=== PATIENT | female | born 1965 | race Two or more races ===

== ENCOUNTER 2024-11-17 21:26 | Inpatient (IN) | payer MEDICAID, OTHER ==
[~2024-11-17] VITALS: Ht 160 cm; Wt 75.0 kg
[2024-11-17 21:35] VITALS: BP 102/72; RESP 18; O2SAT 98
[2024-11-17 21:37] VITALS: PULSE 95
[2024-11-17] MEDS ORDERED: SODIUM CHLORIDE 0.9% 1,000 ML IV ONE (21:45)
[2024-11-17] MEDS ORDERED: ONDANSETRON HCL 4 MG/2 ML VIAL IV ONE (21:45)
--- NOTE | 2024-11-17 21:53 | ED.PDOC ---
History of Present Illness HPI Comments 59 year old female came to ER by EMS for weakness. Patient has history of diabetes. States she has been having episodes of diarrhea all day, she has been feeling very weak and dehydrated, in had a near-syncopal attack today. Blood sugar on scene was 133. 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 Family History Family History: Reviewed,noncontributory to illness Social History Smoker: Non-Smoker Alcohol: Denies ETOH Use Drugs: Denies Drug Use Lives In: Home Constitutional: reports: weakness; denies: chills, diaphoresis, fatigue, fever, malaise, sweats, others EENTM: denies: blurred vision, double vision, ear bleeding, ear discharge, ear drainage, ear pain, ear ringing, eye pain, eye redness, hearing loss, mouth pain, mouth swelling, nasal discharge, nose bleeding, nose congestion, nose pain, photophobia, tearing, throat pain, throat swelling, voice changes, others Respiratory: denies: cough, hemoptysis, orthopnea, SOB at rest, shortness of breath, SOB with excertion, stridor, wheezing, others Cardiovascular: denies: chest pain, dizzy spells, diaphoresis, Dyspnea on exertion, edema, irregular heart beat, left arm pain, lightheadedness, palpitations, PND, syncope, others Gastrointestinal: reports: abdominal pain, diarrhea; denies: abdomen distended, blood streaked bowels, constipated, dysphagia, difficulty swallowing, hematemesis, melena, nausea, poor appetite, poor fluid intake, rectal bleeding, rectal pain, vomiting, others Genitourinary: denies: abnormal vagina bleeding, burning, dyspareunia, dysuria, flank pain, frequency, hematuria, incontinence, pain, , vagina discharge, urgency, others Neurological: denies: dizziness, fainting, headache, left sided numbness, left sided weakness, numbness, paresthesia, pre-existing deficit, right sided numbness, right sided weakness, seizure, speech problems, tingling, tremors, weakness, others Musculoskeletal: denies: back pain, gout, joint pain, joint swelling, muscle pain, muscle stiffness, neck pain, others Integumetry: denies: bruises, change in color, change in hair/nails, dryness, laceration, lesions, lumps, rash, wounds, others Allergic/Immunocompromised: denies: Difficulty Healing, Frequent Infections, Hives, Itching, others Hematologic/Lymphatic: denies: anemia, blood clots, easy bleeding, easy bruising, swollen glands, others Endocrine: denies: excessive hunger, excessive sweating, excessive thirst, excessive urination, flushing, intolerance to cold, intolerance to heat, unexplained weight gain, unexplained weight loss, others Psychiatric: denies: anxiety, bipolar disorder, depression, hopeless, panic disorder, schizophrenia, sleepless, suicidal, others Physical Exam General Appearance: No Apparent Distress, Normal HEENT: Normal ENT Inspection, Pharynx Normal, TMs Normal Neck: Full Range of Motion, Non-Tender, Normal, Normal Inspection Respiratory: Chest Non-Tender, Lungs Clear, No Accessory Muscle Use, No Respiratory Distress, Normal Breath Sounds Cardiovascular: No Edema, No JVD, No Murmur, No Gallop, Normal Peripheral Pulses, Regular Rate/Rhythm Breast Exam: Deferred Gastrointestinal: No Organomegaly, Non Tender, No Pulsatile Mass, Normal Bowel Sounds, Soft Genitalia: Deferred Pelvic: Deferred Rectal: Deferred Extremities: No calf tenderness, Normal capillary refill, Normal inspection, Normal range of motion, Non-tender, No pedal edema Musculoskeletal : Apperance: Normal 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 Was a procedure done?: No Differential Dx Considerations may include: anemia, electrolyte imbalance, dehydration, syncope, gastroenteritis X-Ray, Labs, Meds, VS Vital Signs Date Time Temp Pulse Resp B/P (MAP) Pulse Ox O2 Delivery O2 Flow Rate FiO2 11/17/24 21:37 95 11/17/24 21:35 97.5 98 18 102/72 (82) 98 Lab Test 11/17/24 23:00 11/17/24 22:08 Range/Units Troponin I High Sensitivity 6 4 </=34 ng/L White Blood Count 10.0 4.4-10.8 10^3/uL Red Blood Count 5.23 H 4.0-5.20 10^6/uL Hemoglobin 17.0 H 12.2-16.2 g/dL Hematocrit 49.4 H 36.0-46.0 % Mean Corpuscular Volume 94.4 80.0-100.0 fL Mean Corpuscular Hemoglobin 32.5 H 28.0-32.0 pg Mean Corpuscular Hemoglobin Concent 34.5 32.0-36.0 g/dL Red Cell Distribution Width 13.7 11.8-14.3 % Platelet Count 296 140-450 10^3/uL Mean Platelet Volume 10.0 6.9-10.8 fL Neutrophils (%) (Auto) 67.5 37.0-80.0 % Lymphocytes (%) (Auto) 19.5 10.0-50.0 % Monocytes (%) (Auto) 7.5 0.0-12.0 % Eosinophils (%) (Auto) 5.0 0.0-7.0 % Basophils (%) (Auto) 0.5 0.0-2.0 % Neutrophils # (Auto) 6.8 1.6-8.6 10 ^3/uL Lymphocytes # (Auto) 2.0 0.4-5.4 10 ^3/uL Monocytes # (Auto) 0.8 0-1.3 10 ^3/uL Eosinophils # (Auto) 0.5 0-0.8 10 ^3/uL Basophils # (Auto) 0.1 0-0.2 10 ^3/uL Nucleated Red Blood Cells 0.0 % Sodium Level 139 136-145 mmol/L Potassium Level 4.0 3.5-5.1 mmol/L Chloride Level 102 98-107 mmol/L Carbon Dioxide Level 28 20-31 mmol/L Anion Gap 9 5-15 Blood Urea Nitrogen 22 9-23 mg/dL Creatinine 1.26 H 0.550-1.02 mg/dL Glomerular Filtration Rate Calc 49 >90 mL/min BUN/Creatinine Ratio 17.5 10.0-20.0 Serum Glucose 123 H 74-106 mg/dL Calcium Level 11.2 H 8.7-10.4 mg/dL B-Type Natriuretic Peptide 4.54 0-100 pg/mL Time of 1ST Reevaluation: 21:47 Reevaluation 1ST: Unchanged Patient Education/Counseling: Diagnosis, Treatment Family Education/Counseling: No Family Present Departure 1 Departure Time of Disposition: 23:39 (Patient presented with syncope today and should be admitted. Data: 1. I ordered and reviewed the result of at least 3 labs including a CBC, BMP, and troponin. 2. I independently interpreted the following tests: EKG which shows a sinus rhythm and and a chest x-ray which shows benign chest and a CT head which shows benign brain.Risk:This patient has a high risk of morbidity due to further diagnostic testing or treatment and may suffer from an acute cardiac, neurologic, or infectious disorder. Rationale: Patient should be admitted to the hospital for further management.) Impression: Primary Impression: Syncope and collapse Additional Impressions: Diarrhea Qualified Codes: R19.7 - Diarrhea, unspecified Generalized weakness Disposition: ADMITTED INPATIENT Admit to: Med Surg Condition: Serious Critical Care Note Critical Care Time?: No Stability Stability form required: No Heart Score Heart Score: Heart Score Response (Comments) Value History N/A 0 EKG N/A 0 Age N/A 0 Risk Factors N/A 0 Troponin N/A 0 Total 0 I personally scribed for AGUSTIN BARBER MD ([email or web address]) on 11/17/24 at 21:53. Electronically submitted by Sim Chen ([email or web address]). AGUSTIN BARBER MD Nov 17, 2024 21:53
--- NOTE | 2024-11-17 22:15 | DVH ---
EXAM: CT HEAD WITHOUT CONTRAST HISTORY: syncope COMPARISON: None TECHNIQUE: Axial images were obtained and reformatted in coronal and sagittal planes. All CT scans at this medical facility are performed using dose modulation techniques as appropriate t o a performed exam including the following: Automated exposure control was utilized; adjustment of th e MA and/or KV according to patient size; and use of iterative reconstruction technique. CT Dose: CTDI volume is 55 mGy. Dose-length product is 989 mGy*cm FINDINGS: Supratentorial Region: No evidence for large acute territorial ischemia. No intracranial hemorrhage is noted. Posterior Fossa: No acute abnormality. Brainstem: Unremarkable. Sellar/Suprasellar Region: Unremarkable. Ventricles, Cisterns, Sulci: Age-appropriate. Orbits: Unremarkable. Paranasal Sinuses: Unremarkable. Mastoid Air Cells: Unremarkable. Vasculature: Unremarkable. Bones/Soft Tissues: No acute abnormality. Other: None. IMPRESSION: 1. No acute intracranial process.
--- NOTE | 2024-11-17 22:26 | DVH ---
CHEST RADIOGRAPH Indication: syncope Technique: Single frontal view of the chest was obtained Comparison: None FINDINGS: Single frontal view of the chest demonstrates expanded lungs with normal peripheral marking s. Trachea is midline macrina sharp mainstem bronchi are well aerated. Aorta is unremarkable. Heart size is normal. IMPRESSION: 1. No acute findings
[2024-11-17 22:28] LABS: Basophils # (auto) 0.1 10 ^3/uL (0-0.2); Basophils % (auto) 0.5 % (0.0-2.0); Eosinophils # (auto) 0.5 10 ^3/uL (0-0.8); Hematocrit 49.4 % (36.0-46.0); Lymphocytes % (auto) 19.5 % (10.0-50.0); Mean Corpuscular Hemoglobin 32.5 pg (28.0-32.0); Mean Corpuscular Hgb Conc. 34.5 g/dL (32.0-36.0); Mean Corpuscular Volume 94.4 fL (80.0-100.0); Monocytes # (auto) 0.8 10 ^3/uL (0-1.3); Monocytes % (auto) 7.5 % (0.0-12.0); Neutrophils # (auto) 6.8 10 ^3/uL (1.6-8.6); Neutrophils % (auto) 67.5 % (37.0-80.0); Platelet Count (auto) 296 10^3/uL (140-450); Red Blood Cells 5.23 10^6/uL (4.0-5.20); Red Cell Distribution Width 13.7 % (11.8-14.3)
[2024-11-17 22:53] LABS: Chloride 102 mmol/L (98-107); Sodium 139 mmol/L (136-145)
[2024-11-17 22:54] LABS: Anion Gap 9 (5-15); Carbon Dioxide 28 mmol/L (20-31)
[2024-11-17 22:59] LABS: BUN/Creatinine Ratio 17.5 (10.0-20.0); Blood Urea Nitrogen 22 mg/dL (9-23)
[2024-11-17 23:03] LABS: Calcium 11.2 mg/dL (8.7-10.4); Glucose 123 mg/dL (74-106)
[2024-11-18] MEDS ORDERED: NITROGLYCERIN 0.4 MG SL TAB SL PRN (01:30)
[2024-11-18] MEDS ORDERED: SODIUM CHLORIDE 0.9% 1,000 ML IV SCH (01:30)
[2024-11-18] MEDS ORDERED: ACETAMINOPHEN 325 MG TAB PO PRN (01:30)
[2024-11-18] MEDS ORDERED: ONDANSETRON HCL 4 MG/2 ML VIAL IV PRN (01:30)
[2024-11-18] MEDS ORDERED: MORPHINE SULFATE INJ 2 MG/ml SYRG IV PRN (01:30)
--- NOTE | 2024-11-18 01:38 | DVHHPRES ---
History of Present Illness Resident Creating Document: MARIA ELENA SOTO RESIDENT History of Present Illness DULCE ZAPATA 59 years old female with a PMH of type 2 DM, asthma, arthritis, GERD, HTN presented to the ED with the chief complaints of weakness and diarrhea since morning. Patient reported yesterday she had about a 2 and today morning patient started having diarrhea which is nonbloody, 5 episodes, associated with mild nausea but no vomiting, abdominal pain, fever and today afternoon patient ate [place] food, since then she is having burping and smells like egg. Patient reported the she felt near faintedness due to dehydration. No other acute associated symptoms. PMH: Type 2 DM, asthma, arthritis, GERD, HTN PSH: Denies Family history: Reviewed, noncontributory Social history: Lives with boyfriend. Smokes less than 1 pack per day since childhood but denies alcohol and marijuana and other drug abuse Home medications: Ozempic, hydrochlorothiazide Allergies: Butorphanol Review of Systems Constitutional: Yes: Weakness, Malaise Eyes: No: Pain, Vision change, Conjunctivae inflammation, Eyelid inflammation, Other, Redness ENT: No: Ear pain, Ear discharge, Nose pain, Nose discharge, Nose congestion, Mouth pain, Mouth swelling, Throat pain, Throat swelling, Other Respiratory: No: Cough, Dry, Shortness of breath, SOB with excertion, Wheezing, Hemoptysis, Pleuritic Pain, Sputum, Wheezing, Other Cardiovascular: Lt Headedness; No: Chest Pain, Palpitations, Orthopnea, Paroxysmal Noc. Dyspnea, Edema, Other Gastrointestinal: Diarrhea Genitourinary: No Dysuria, No Frequency, No Incontinence, No Hematuria, No Retention, No Other Musculoskeletal: No: other, neck pain, shoulder pain, arm pain, back pain, hand pain, leg pain, foot pain Skin: No: Rash, Lesions, Jaundice, Bruising, Other Neurological: No: Weakness, Numbness, Incoordination, Change in speech, Confus ion, Seizures, Other Allergies: Coded Allergies: Butorphanol (Verified Allergy, Unknown, 11/17/24) Exam Vital Signs Vital Signs Date Time Temp Pulse Resp B/P (MAP) Pulse Ox O2 Delivery O2 Flow Rate FiO2 11/17/24 21:37 95 11/17/24 21:35 97.5 18 102/72 (82) 98 Exam General Appearance: Alert, Oriented X3, Cooperative, mild distress HEENT: Atraumatic, Mucous membranes dry Respiratory: Clear to auscultation, Normal air movement, No added sounds Cardiovascular: Regular rate, Normal S1, Normal S2, No murmurs Abdominal: Hyperctive bowel sounds, Soft, no distention, no tenderness Extremities: No edema, Normal pulses, No tenderness/swelling Skin: No Significant rash, except past surgical scars Neuro: Normal speech, sensorimotor deficits none Psych/Mental Status: Mental status NL, Mood NL Nurse was there as sharperone during examination Labs/Xrays Labs Test 11/18/24 00:30 11/17/24 22:08 Range/Units Troponin I High Sensitivity 7 </=34 ng/L White Blood Count 10.0 4.4-10.8 10^3/uL Red Blood Count 5.23 H 4.0-5.20 10^6/uL Hemoglobin 17.0 H 12.2-16.2 g/dL Hematocrit 49.4 H 36.0-46.0 % Mean Corpuscular Volume 94.4 80.0-100.0 fL Mean Corpuscular Hemoglobin 32.5 H 28.0-32.0 pg Mean Corpuscular Hemoglobin Concent 34.5 32.0-36.0 g/dL Red Cell Distribution Width 13.7 11.8-14.3 % Platelet Count 296 140-450 10^3/uL Mean Platelet Volume 10.0 6.9-10.8 fL Neutrophils (%) (Auto) 67.5 37.0-80.0 % Lymphocytes (%) (Auto) 19.5 10.0-50.0 % Monocytes (%) (Auto) 7.5 0.0-12.0 % Eosinophils (%) (Auto) 5.0 0.0-7.0 % Basophils (%) (Auto) 0.5 0.0-2.0 % Neutrophils # (Auto) 6.8 1.6-8.6 10 ^3/uL Lymphocytes # (Auto) 2.0 0.4-5.4 10 ^3/uL Monocytes # (Auto) 0.8 0-1.3 10 ^3/uL Eosinophils # (Auto) 0.5 0-0.8 10 ^3/uL Basophils # (Auto) 0.1 0-0.2 10 ^3/uL Nucleated Red Blood Cells 0.0 % Sodium Level 139 136-145 mmol/L Potassium Level 4.0 3.5-5.1 mmol/L Chloride Level 102 98-107 mmol/L Carbon Dioxide Level 28 20-31 mmol/L Anion Gap 9 5-15 Blood Urea Nitrogen 22 9-23 mg/dL Creatinine 1.26 H 0.550-1.02 mg/dL Glomerular Filtration Rate Calc 49 >90 mL/min BUN/Creatinine Ratio 17.5 10.0-20.0 Serum Glucose 123 H 74-106 mg/dL Calcium Level 11.2 H 8.7-10.4 mg/dL B-Type Natriuretic Peptide 4.54 0-100 pg/mL Assessment/Plan Assessment/Plan # possible gastroenteritis # dehydration -ordered stool cultures -supportive treatment -currently giving IVF -encourage oral feeds # presyncope likely due to dehydration -CT showed no acute changes # GERD -Protonix # hypertension -hold hypertension meds due to soft blood pressure # type 2 DM -monitor blood glucose Protonix Lovenox Liquid diet, advanced as tolerated Goals of care discussed with the patient for more than 29 minutes: Full code status Case discussed with Dr. White, patient and nurse Plan discussed with: Patient My Orders Orders - MARIA ELENA SOTO RESIDENT Procedure Category Date Status Time Admit ADMIT 11/18/24 Transmitted 01:24 Allergies VENUS 11/18/24 In Process 01:24 Code Status CODE 11/18/24 Transmitted 01:24 Sodium Chloride Lock PHA 11/18/24 In Process (Saline Lock Ns) 06:00 Sodium Chloride 0.9% PHA 11/18/24 In Process 01:30 Ondansetron Hcl PHA 11/18/24 In Process (Zofran) 01:30 Enoxaparin Sodium PHA 11/18/24 In Process (Lovenox) 10:00 Complete Blood Count LAB 11/18/24 Logged 04:00 Comprehensive LAB 11/18/24 Logged Metabolic Panel 04:00 Condition: Stable VENUS 11/18/24 In Process 01:24 Acetaminophen Tablet PHA 11/18/24 In Process (Tylenol Tablet) 01:30 Clear Liq Diet DIET 11/18/24 Transmitted Breakfast Nitroglycerin PHA 11/18/24 In Process Sublingual (Ntrostat 01:30 Morphine Sulfate PHA 11/18/24 In Process Injection 01:30 Oxygen By Nasal RT 11/18/24 Transmitted Cannula 01:24 Stat Ekg For Chest VENUS 11/18/24 In Process Pain 01:24 Notify Md Of Changes VENUS 11/18/24 In Process From Base 01:24 Stool Bacterial ANT 11/18/24 Logged Culture 01:24 Stool Wbc LAB 11/18/24 Logged 01:24 Ph Stool LAB 11/18/24 Logged 01:24 Ammonia LAB 11/18/24 Logged 01:24 Blood Alcohol LAB 11/18/24 Logged 01:24 Covid19 Antigen Saima LAB 11/18/24 Logged Drug Screen LAB 11/18/24 Logged 01:24 Hemoglobin A1c LAB 11/18/24 In Process 01:24 Lactic Acid W/ Reflex LAB 11/18/24 Logged Order 01:24 Magnesium LAB 11/18/24 Logged 01:24 PTPTT LAB 11/18/24 In Process 01:24 Rapid Influenza A&B LAB 11/18/24 Logged 01:24 Thyroid Stimulating LAB 11/18/24 In Process Hormone 01:24 Urinalysis LAB 11/18/24 Logged 01:24 Ct Ab Pel Wo Con-No CT 11/18/24 Logged Oral Or Iv 01:30 D-Dimer LAB 11/17/24 In Process 22:08 Pantoprazole PHA 11/18/24 Logged (Protonix) 10:00 Date of Service: Nov 18, 2024 Billing Provider: BRIAN WHITE MD Common Visit Codes: [id number] INP/OBS CARE (HIGH) MARIA ELENA SOTO RESIDENT Nov 18, 2024 01:38 BRIAN WHITE MD Nov 20, 2024 10:26
[2024-11-18 02:14] LABS: INR 0.94 (0.9-1.15); Partial Thromboplastin Time 26.8 SEC (24.5-34.5)
[2024-11-18 03:44] LABS: Magnesium 2.2 mg/dL (1.6-2.6)
[2024-11-18 03:45] LABS: Blood Alcohol < 3.0 mg/dL (<10)
--- NOTE | 2024-11-18 04:17 | DVH ---
Exam: CT CT AB PEL WO CON-NO ORAL OR IV History: Diarrhea Comparison Study: None available at time of dictation. TECHNIQUE: Multidetector CT of the abdomen was performed from lung bases to pubic symphysis. Imaging was performed without IV contrast. Axial, coronal and sagittal multiplanar reformats were obtained fr om the axial data set by the technologist. Radiation optimization: All CT scans at this facility use at least one of these dose optimization justine hniques: automated exposure control mA and/or kV adjustment per patient size (includes targeted exam s where dose is matched to clinical indication) or iterative reconstruction. Radiation Dose Information: CT Dose: CTDI volume is 9.7 mGy. Dose-length product is 452.3 mGy*cm FINDINGS: Evaluation of solid organs is limited due to lack of intravenous contrast use. Findings: Imaged portions of the lung bases appear unremarkable. The liver, spleen appear unremarkable. There has been prior cholecystectomy. The adrenal glands appear unremarkable. Kidneys appear symmetric with out calculi or hydronephrosis. Mild haziness of the peripancreatic fat without fluid collection. No e vidence of bowel obstruction or focal bowel wall thickening. Appendix appears normal. No free fluid, free air, or adenopathy. Moderate degenerative changes of the visualized spine without suspicious osseous lesion. IMPRESSION: 1. Possible mild peripancreatic fat stranding. Correlation with amylase and lipase levels is recomme nded for assessment of early pancreatitis. Otherwise no acute findings. 2. HS:Y
--- NOTE | 2024-11-18 05:37 | DVHDSRES ---
Discharge Summary Date of Admission Resident Creating Document: MARIA ELENA SOTO RESIDENT Nov 18, 2024 at 01:24 Date of Discharge: Nov 18, 2024 Admitting Diagnosis Diarrhea Labs/Diagnostic Data: Laboratory Results Test 11/18/24 01:54 11/18/24 00:30 11/17/24 22:08 Lactic Acid Level 1.0 mmol/L (0.4-2.0) Magnesium Level 2.2 mg/dL (1.6-2.6) Ammonia 20 umol/L (11-32) Plasma/Serum Blood Alcohol < 3.0 mg/dL (<10) Troponin I High Sensitivity 7 ng/L (</=34) White Blood Count 10.0 10^3/uL (4.4-10.8) Red Blood Count 5.23 10^6/uL (4.0-5.20) Hemoglobin 17.0 g/dL (12.2-16.2) Hematocrit 49.4 % (36.0-46.0) Mean Corpuscular Volume 94.4 fL (80.0-100.0) Mean Corpuscular Hemoglobin 32.5 pg (28.0-32.0) Mean Corpuscular Hemoglobin Concent 34.5 g/dL (32.0-36.0) Red Cell Distribution Width 13.7 % (11.8-14.3) Platelet Count 296 10^3/uL (140-450) Mean Platelet Volume 10.0 fL (6.9-10.8) Neutrophils (%) (Auto) 67.5 % (37.0-80.0) Lymphocytes (%) (Auto) 19.5 % (10.0-50.0) Monocytes (%) (Auto) 7.5 % (0.0-12.0) Eosinophils (%) (Auto) 5.0 % (0.0-7.0) Basophils (%) (Auto) 0.5 % (0.0-2.0) Neutrophils # (Auto) 6.8 10 ^3/uL (1.6-8.6) Lymphocytes # (Auto) 2.0 10 ^3/uL (0.4-5.4) Monocytes # (Auto) 0.8 10 ^3/uL (0-1.3) Eosinophils # (Auto) 0.5 10 ^3/uL (0-0.8) Basophils # (Auto) 0.1 10 ^3/uL (0-0.2) Nucleated Red Blood Cells 0.0 % Prothrombin Time 10.0 sec (9.3-11.8) Prothrombin Time INR 0.94 (0.9-1.15) Activated Partial Thromboplast Time 26.8 SEC (24.5-34.5) D-Dimer, Quantitative 0.22 mg/L FEU (0.0-0.49) Sodium Level 139 mmol/L (136-145) Potassium Level 4.0 mmol/L (3.5-5.1) Chloride Level 102 mmol/L (98-107) Carbon Dioxide Level 28 mmol/L (20-31) Anion Gap 9 (5-15) Blood Urea Nitrogen 22 mg/dL (9-23) Creatinine 1.26 mg/dL (0.550-1.02) Glomerular Filtration Rate Calc 49 mL/min (>90) BUN/Creatinine Ratio 17.5 (10.0-20.0) Serum Glucose 123 mg/dL (74-106) Hemoglobin A1c 5.3 % A1C (<5.7) Calcium Level 11.2 mg/dL (8.7-10.4) B-Type Natriuretic Peptide 4.54 pg/mL (0-100) Thyroid Stimulating Hormone (TSH) 2.87 uIU/mL (0.55-4.78) Other Laboratory Tests 11/17/24 22:08 Brief Hx & Hospital Course: DULCE ZAPATA 59 years old female with a PMH of type 2 DM, asthma, arthritis, GERD, HTN presented to the ED with the chief complaints of weakness and diarrhea since morning. Patient reported yesterday she had about a 2 and today morning patient started having diarrhea which is nonbloody, 5 episodes, associated with mild nausea but no vomiting, abdominal pain, fever and today afternoon patient ate [place] food, since then she is having burping and smells like egg. Patient reported the she felt near faintedness due to dehydration. No other acute associated symptoms. Patient recorded hospital admission for further evaluation and management of diarrhea. Patient was currently treating symptomatically with IV fluids an ordered further imaging and test, CT showed findings suggestive of acute pancreatitis, ordered stool cultures and stool occult blood. Patient is still under treatment but patient do not want to continue to stay at the hospital at this time, decided to leave AMA despite explaining this of leaving AMA. Operations or Procedures EXAM: CT HEAD WITHOUT CONTRAST IMPRESSION: 1. No acute intracranial process. Exam: CT CT AB PEL WO CON-NO ORAL OR IV Findings: Imaged portions of the lung bases appear unremarkable. The liver, spleen appear unremarkable. There has been prior cholecystectomy. The adrenal glands appear unremarkable. Kidneys appear symmetric without calculi or hydronephrosis. Mild haziness of the peripancreatic fat without fluid collection. No evidence of bowel obstruction or focal bowel wall thickening. Appendix appears normal. No free fluid, free air, or adenopathy. Moderate degenerative changes of the visualized spine without suspicious osseous lesion. IMPRESSION: 1. Possible mild peripancreatic fat stranding. Correlation with amylase and lipase levels is recommended for assessment of early pancreatitis. Otherwise no acute findings. Condition at Discharge: Undetermined Final Diagnosis/Problems List # possible gastroenteritis # ? Acute pancreatitis # dehydration # presyncope likely due to dehydration # GERD # hypertension # type 2 DM Discharge Disposition: AMA Discharge Statement: "Patient was advised to return to the ER or call 911 if any headaches, dizziness, shortness of breath, chest pain, abdominal pain, bleeding, fevers, or worsening of medical condition. Patient was counseled about treatment plan, medications, possible side effects, patientverbalized understanding. All questions were answered to the best of my ability. This discharge took greater then 30 minutes in planning, reviewing documentation, counseling the patient, and discussing with other team members." ASSESSMENT ASSESSMENT Assessment Date of Service: Nov 18, 2024 Billing Provider: BRIAN GARLAND MD Common Visit Codes: 68853-PXQ/OBS DISCH DAY <30MIN MARIA ELENA SOTO RESIDENT Nov 18, 2024 05:37 BRIAN GARLAND MD Nov 20, 2024 10:27
[2024-11-18] MEDS ORDERED: SODIUM CHLOR 0.9% PF (SALINE LOCK) 10ML VIAL/SYR IV SCH (06:00)
[2024-11-18] MEDS ORDERED: PANTOPRAZOLE 40 MG/10 ML VIAL INJ IV SCH (10:00)
[2024-11-18] MEDS ORDERED: ENOXAPARIN SOD 40 MG/0.4 ML SYRINGE SC SCH (10:00)
--- NOTE | 2024-11-20 10:47 | ECG ---
[facility] Test Date: 2024-11-17 Test Time: 21:37:51 Pat Name: DULCE ZAPATA Department: ED Room: [address] [place] [address] Gender: F Specialist Managers: JANETT : 1965 Requested By: AGUSTIN BARBER Order Number: [id number] Reading MD: Measurements Intervals [place] Rate: 95 P: 18 AR: 137 QRS: 87 QRSD: 79 T: 33 QT: 356 QTc: 448 Interpretive Statements Sinus rhythm Borderline right axis deviation Borderline T abnormalities, anterior leads Please click the below link to view image of tracing.
== END 2024-11-18 04:22 | disposition left against medical advice (07) | DRG 249 ==
LOC: EDBD 21:26 → ER 21:26 → OVERFLOW 11-18 01:24
PROVIDERS: ATTEND Emergency Medicine
DX: K52.9 Noninfective gastroenteritis and colitis, unspecified (principal); K85.90 Acute pancreatitis without necrosis or infection, unspecified; E11.9 Type 2 diabetes mellitus without complications; Z53.29 Procedure and treatment not carried out because of patient's decision for other reasons; E86.0 Dehydration; K21.9 Gastro-esophageal reflux disease without esophagitis; I10 Essential (primary) hypertension; J45.909 Unspecified asthma, uncomplicated; F17.210 Nicotine dependence, cigarettes, uncomplicated; Z79.4 Long term (current) use of insulin; Z79.899 Other long term (current) drug therapy; Z88.8 Allergy status to other drugs, medicaments and biological substances; Y90.1 Blood alcohol level of 20-39 mg/100 ml
CPT/HCPCS: 36415; 70450; 71045; 74176; 80048; 80320; 82140; 83036; 83605; 83690; 83735; 83880; 84443; 84484; 85025; 85379; 85610; 85730; G0378